=== PATIENT | male | born 1995 | race Two or more races ===

== ENCOUNTER 2019-02-17 10:56 | Emergency (ER) | payer MEDICAID ==
[2019-02-17] MEDS ORDERED: KETOROLAC TROMETHAMINE INJ 30 MG/ML VIAL ONE (11:57)
[2019-02-17] MEDS ORDERED: DEXAMETHASONE SOD PHOSPHATE 4 MG/ML VIAL ONE (11:57)
[2019-02-17] MEDS ORDERED: DEXAMETHASONE SOD PHOSPHATE 4 MG/ML VIAL IM ONE (12:00)
[2019-02-17] MEDS ORDERED: KETOROLAC TROMETHAMINE INJ 60 MG/2 ML VIAL IM ONE (12:00)
--- NOTE | 2019-02-17 12:13 | NUR ---
PATIENT AWAKE ALERT NO NOSN DISTRESS NOTED @ BEDSIDE WITH 7 SMALL KIDS INSTRUCTED TO WAIT IN THE WAITNG AREA WASH OPERATOR MICHELINE Hernandez CNA @ BEDSIDE PATIENT AGREES
== END 2019-02-17 12:25 | disposition home or self-care (01) ==
LOC: EDSEX 10:56 → ER 10:56
DX: B34.9 Viral infection, unspecified (principal)
CPT/HCPCS: 96372 ×2; 99283; J1100; J1885

== ENCOUNTER 2020-10-11 17:58 | Emergency (ER) | payer MEDICAID ==
[~2020-10-11] VITALS: Ht 157.5 cm; Wt 79.4 kg
--- NOTE | 2020-10-11 18:35 | NUR ---
The patient bibs for c/o "Abdominal Pain started yesterday worse now mostly on left lower side". Rates pain 10/10. Abdomen soft and non-distended. Denies SOB. Respiration regular and unlabored. Will continue to monitor the patient.
--- NOTE | 2020-10-11 19:05 | NUR ---
Rec'd report from GUILLERMO Devlin for jerrell
--- NOTE | 2020-10-11 19:21 | NUR ---
lab at bedside
[2020-10-11 19:26] LABS: BILIRUBIN,URINE NEGATIVE (NEGATIVE); COLOR,URINE YELLOW (YELLOW); LEUKOCYTE ESTERASE ,URINE NEGATIVE (NEGATIVE); NITRITE, URINE NEGATIVE (NEGATIVE); PH,URINE 7.5 (5.0-8.0); PROTEIN,URINE NEGATIVE (NEGATIVE); UGLUCOSE NEGATIVE (NEGATIVE); UROBILINOGEN,URINE 0.2 EU/dL (0.2)
[2020-10-11 19:35] LABS: CALCIUM, SERUM 9.2 mg/dL (8.5-10.1); POTASSIUM 3.5 mmol/L (3.5-5.1)
[2020-10-11 19:47] LABS: BASOPHILS % (AUTO) 0.3 % (0.0-2.0); EOSINOPHILS % (AUTO) 1.3 % (0.0-6.0); HEMATOCRIT 41 % (39-51); HEMOGLOBIN 13.9 g/dL (13.5-17.5); LYMPHOCYTES # (AUTO) 2.2 /CMM (0.8-4.8); LYMPHOCYTES % (AUTO) 18.4 % (20.0-44.0); MEAN CORPUSCULAR HGB CONC 34 g/dl (31.0-36.0); MEAN CORPUSCULAR VOLUME 89 fL (80-96); MONOCYTES % (AUTO) 8.3 % (2.0-12.0); NEUTROPHILS # (AUTO) 8.6 /CMM (1.8-8.9); NEUTROPHILS % (AUTO) 71.7 % (43.0-81.0); PLATELET COUNT (AUTO) 218 /CMM (150-450); RED BLOOD CELL COUNT(AUTO) 4.54 MIL/uL (4.5-6.0)
[2020-10-11 19:53] LABS: ALBUMIN 4.1 g/dL (3.4-5.0); BILIRUBIN,DIRECT 0.2 mg/dL (0.0-0.2); BILIRUBIN,TOTAL 0.7 mg/dL (0.2-1.0)
[2020-10-11] MEDS ORDERED: PIPERACILLIN /TAZOBACTAM 3.375 G VIAL IV ONE (20:10)
[2020-10-11] MEDS ORDERED: AMOX-430 PO (20:25)
[2020-10-11] MEDS ORDERED: PIPERACILLIN /TAZOBACTAM 3.375 G in IV D5W 50 ML IV ONE (20:30)
[2020-10-11] MEDS ORDERED: TRAM50TA2 PO (20:33)
--- NOTE | 2020-10-11 20:52 | NUR ---
Patient discharged to home in stable condition. Written and verbal after care instructions given. Patient verbalizes understanding of instruction. IV removed. Catheter intact and site benign. Pressure and 4x4 applied to site. No bleeding noted. Pt ambulatory with a steady gait
[2020-10-11 20:55] VITALS: BP 109/77
== END 2020-10-11 20:52 | disposition home or self-care (01) ==
LOC: ER 18:01
DX: K57.32 Diverticulitis of large intestine without perforation or abscess without bleeding (principal)
CPT/HCPCS: 36415; 74176; 80048; 80076; 81003; 83690; 85025; 85730; 96365; 99284; J2543; J7060

== ENCOUNTER 2023-03-06 00:09 | Emergency (ER) | payer MEDICAID ==
[~2023-03-06] VITALS: Ht 157.5 cm; Wt 90.7 kg
[~2023-03-06 00:09] MED LIST: AMOX-430 PO; TRAM50TA2 PO
[2023-03-06 00:24] VITALS: TEMP 98
[2023-03-06] MEDS ORDERED: IBUP-1955 PO (02:54)
[2023-03-06 04:12] VITALS: BP 131/76; O2SAT 98
== END 2023-03-06 04:12 | disposition home or self-care (01) ==
LOC: ER 00:11
DX: M25.561 Pain in right knee (principal); F10.10 Alcohol abuse, uncomplicated; R51.9 Headache, unspecified; Z79.899 Other long term (current) drug therapy; Y90.9 Presence of alcohol in blood, level not specified; W18.39XA Other fall on same level, initial encounter; Y93.89 Activity, other specified; Y92.89 Other specified places as the place of occurrence of the external cause; Y99.8 Other external cause status
CPT/HCPCS: 70450-TC; 72125-TC; 73564-TC

== ENCOUNTER 2023-04-01 21:54 | Emergency (ER) | payer MEDICAID ==
[~2023-04-01] VITALS: Ht 203.2 cm; Wt 90.7 kg
[~2023-04-01 21:54] MED LIST changes: +IBUP-1955 PO
[2023-04-01] MEDS ORDERED: IBUPROFEN 400 MG TABLET PO ONE (23:30)
[2023-04-02 00:21] VITALS: BP 118/71; TEMP 98.2; O2SAT 98
== END 2023-04-02 00:22 | disposition home or self-care (01) ==
LOC: ER 21:57
DX: S09.90XA Unspecified injury of head, initial encounter (principal); F10.129 Alcohol abuse with intoxication, unspecified; W18.30XA Fall on same level, unspecified, initial encounter; Y93.89 Activity, other specified; Y92.89 Other specified places as the place of occurrence of the external cause; Y99.8 Other external cause status; Y90.9 Presence of alcohol in blood, level not specified
CPT/HCPCS: 70450-TC

== ENCOUNTER 2023-11-05 00:14 | Emergency (ER) | payer MEDICAID, OTHER ==
[~2023-11-05] VITALS: Ht 162.6 cm; Wt 81.6 kg
[2023-11-05 00:40] VITALS: TEMP 98.8
[2023-11-05] MEDS ORDERED: CHLORDIAZEPOXIDE HCL 25 MG CAPSULE ONE (01:29)
[2023-11-05 01:40] LABS: BASOPHILS # (AUTO) 0.1 K/uL (0.0-0.2); EOSINOPHILS # (AUTO) 0.1 K/uL (0.0-0.7); EOSINOPHILS % (AUTO) 1.5 % (0.0-6.0); HEMATOCRIT 44 % (39-51); HEMOGLOBIN 15.7 g/dL (13.5-17.5); LYMPHOCYTES # (AUTO) 2.8 K/uL (0.8-4.8); MEAN CORPUSCULAR HEMOGLOBIN 32 PG (26.0-33.0); MEAN CORPUSCULAR HGB CONC 36 g/dl (31.0-36.0); MEAN CORPUSCULAR VOLUME 89 fL (80-96); MONOCYTES # (AUTO) 0.4 K/uL (0.1-1.30); MONOCYTES % (AUTO) 7.2 % (2.0-12.0); NEUTROPHILS # (AUTO) 2.7 K/uL (1.8-8.9); NEUTROPHILS % (AUTO) 44.3 % (43.0-81.0); PLATELET COUNT (AUTO) 244 K/uL (150-450); RED BLOOD CELL COUNT(AUTO) 4.96 MIL/uL (4.5-6.0); RED CELL DISTRIBUTION WIDTH 13.7 % (11.5-15.0); WHITE BLOOD COUNT (AUTO) 6.2 K/uL (4.3-11.0)
[2023-11-05] MEDS: CHLORDIAZEPOXIDE HCL 25 MG CAPSULE PO ONE (01:45)
[2023-11-05] MEDS: IV NS 0.9% 1,000 ML BAG IV ONE (01:50)
[2023-11-05 01:55] LABS: CALCIUM, SERUM 9.1 mg/dL (8.5-10.1); CARBON DIOXIDE 25 mmol/L (21-32); CHLORIDE 98 mmol/L (98-107); CREATININE 0.8 mg/dL (0.6-1.3); GLUCOSE 134 mg/dL (74-106); POTASSIUM 3.4 mmol/L (3.5-5.1); SODIUM SERUM 137 mmol/L (136-145); UREA NITROGEN, BLOOD 6 mg/dL (7-18)
[2023-11-05 02:01] LABS: ALANINE AMINOTRANSFERASE 188 U/L (12-78); ALBUMIN 3.3 g/dL (3.4-5.0); ALCOHOL, BLOOD 259 mg/dL (0-10); ALKALINE PHOSPHATASE 114 U/L (46-116); ASPARTATE AMINOTRANSFERASE 148 U/L (15-37); BILIRUBIN,DIRECT 0.2 mg/dL (0.0-0.2); BILIRUBIN,TOTAL 0.5 mg/dL (0.2-1.0); TOTAL PROTEIN, SERUM 7.6 g/dL (6.4-8.2)
[2023-11-05] MEDS ORDERED: FAMO20TA80 GT (03:54)
[2023-11-05] MEDS ORDERED: PANT40TA49 PO (03:54)
[2023-11-05 04:02] VITALS: BP 63/83; O2SAT 94
== END 2023-11-05 04:03 | disposition home or self-care (01) ==
LOC: ER 00:15
DX: K29.70 Gastritis, unspecified, without bleeding (principal); F10.10 Alcohol abuse, uncomplicated; Z79.899 Other long term (current) drug therapy; Y90.8 Blood alcohol level of 240 mg/100 ml or more
CPT/HCPCS: 99285; 96360; 93005; 71045; 85025; 80048; 80076; 36415; 84484 ×2; 80320; J7030; G0480

== ENCOUNTER 2024-10-01 23:07 | Emergency (ER) | payer OTHER ==
[~2024-10-01] VITALS: Ht 152.4 cm; Wt 81.6 kg
[~2024-10-01 23:07] MED LIST changes: +FAMO20TA80 GT; +PANT40TA49 PO
[2024-10-02] MEDS ORDERED: TDAP [DIPH/PERTUSSIS/TET] 0.5 ML VIAL IM ONE (01:38)
[2024-10-02] MEDS: IV NS 0.9% 1,000 ML IV ONE ×2 (02:10→03:20)
[2024-10-02 02:11] LABS: BASOPHILS # (AUTO) 0.1 K/uL (0.0-0.2); BASOPHILS % (AUTO) 0.8 % (0.0-2.0); EOSINOPHILS # (AUTO) 0.2 K/uL (0.0-0.7); EOSINOPHILS % (AUTO) 2.5 % (0.0-6.0); HEMATOCRIT 41 % (39-51); LYMPHOCYTES # (AUTO) 3.2 K/uL (0.8-4.8); LYMPHOCYTES % (AUTO) 44.5 % (20.0-44.0); MEAN CORPUSCULAR HEMOGLOBIN 32 PG (26.0-33.0); MEAN CORPUSCULAR HGB CONC 34 g/dl (31.0-36.0); MEAN CORPUSCULAR VOLUME 93 fL (80-96); MONOCYTES # (AUTO) 0.5 K/uL (0.1-1.30); MONOCYTES % (AUTO) 7.2 % (2.0-12.0); NEUTROPHILS # (AUTO) 3.3 K/uL (1.8-8.9); PLATELET COUNT (AUTO) 215 K/uL (150-450); RED BLOOD CELL COUNT(AUTO) 4.42 MIL/uL (4.5-6.0); RED CELL DISTRIBUTION WIDTH 13.2 % (11.5-15.0); WHITE BLOOD COUNT (AUTO) 7.3 K/uL (4.3-11.0)
[2024-10-02] MEDS: TDAP [DIPH/PERTUSSIS/TET] 0.5 ML VIAL IM ONE (02:11)
[2024-10-02 02:22] LABS: CALCIUM, SERUM 8.2 mg/dL (8.5-10.1); CREATININE 0.6 mg/dL (0.6-1.3); POTASSIUM 3.5 mmol/L (3.5-5.1)
[2024-10-02 02:28] LABS: ALBUMIN 3.3 g/dL (3.4-5.0); BILIRUBIN,TOTAL 0.2 mg/dL (0.2-1.0); TOTAL PROTEIN, SERUM 7.4 g/dL (6.4-8.2)
[2024-10-02 05:00] VITALS: BP 129/84; TEMP 98.4; O2SAT 95
== END 2024-10-02 05:00 | disposition home or self-care (01) ==
LOC: ER 23:10
DX: F10.10 Alcohol abuse, uncomplicated (principal); S00.81XA Abrasion of other part of head, initial encounter; M54.2 Cervicalgia; Z79.899 Other long term (current) drug therapy; Y04.0XXA Assault by unarmed brawl or fight, initial encounter; Y93.89 Activity, other specified; Y92.89 Other specified places as the place of occurrence of the external cause; Y99.8 Other external cause status
CPT/HCPCS: 99285; 90471; 96360; 96361; 93005; 90715; 71045; 72125; 70450; 70486; 85025; 36415; 80053; 80320; J7030 ×2; G0480

== ENCOUNTER 2025-02-23 21:04 | Emergency (ER) | payer OTHER ==
[~2025-02-23] VITALS: Ht 152.4 cm; Wt 92.1 kg
[2025-02-23] MEDS ORDERED: IOHEXOL-300 100 ML VIAL IV ONE (21:25)
[2025-02-23] MEDS ORDERED: CT SWABBABLE VALVE TRANS SET 1 EA INFUS.SET MC ONE (21:25)
[2025-02-23] MEDS ORDERED: IV NS 0.9% 250 ML IV ONE (21:26)
[2025-02-23] MEDS: TDAP [DIPH/PERTUSSIS/TET] 0.5 ML VIAL IM ONE (22:18)
[2025-02-23] MEDS ORDERED: CEPH-570 PO (22:39)
[2025-02-23 22:44] LABS: PLATELET COUNT (AUTO) 242 K/uL (150-450); RED BLOOD CELL COUNT(AUTO) 4.90 MIL/uL (4.5-6.0); RED CELL DISTRIBUTION WIDTH 13.8 % (11.5-15.0); WHITE BLOOD COUNT (AUTO) 13.0 K/uL (4.3-11.0)
[2025-02-23 22:47] LABS: CALCIUM, SERUM 8.6 mg/dL (8.5-10.1); CREATININE 0.8 mg/dL (0.6-1.3); SODIUM SERUM 136.0 mmol/L (136-145); UREA NITROGEN, BLOOD 4.0 mg/dL (7-18)
[2025-02-23 22:49] LABS: INR 0.99 (0.91-1.10)
[2025-02-23 22:53] LABS: ALCOHOL, BLOOD 357.0 mg/dL (0-10); ASPARTATE AMINOTRANSFERASE 192.0 U/L (15-37); TOTAL PROTEIN, SERUM 8.8 g/dL (6.4-8.2)
[2025-02-23 23:54] VITALS: BP 105/93; TEMP 98.7; O2SAT 95
== END 2025-02-23 23:55 | disposition home or self-care (01) ==
LOC: ER 21:05
DX: S01.81XA Laceration without foreign body of other part of head, initial encounter (principal); Z79.899 Other long term (current) drug therapy; W26.0XXA Contact with knife, initial encounter; Y93.89 Activity, other specified; Y92.89 Other specified places as the place of occurrence of the external cause; Y99.8 Other external cause status
CPT/HCPCS: 12054; 99285; 90471; 90715; 70491; 70487; 85025; 85610; 36415; 80053; 86850; 80320; J7050; Q9967; G0480